=== PATIENT | female | born 2000 | race Caucasian/White ===

== ENCOUNTER 2022-05-06 13:01 | Emergency (ER) | payer OTHER, SELFPAY ==
[2022-05-06 13:12] VITALS: BP 103/54; PULSE 120; RESP 24; TEMP 36.7; O2SAT 100
--- NOTE | 2022-05-06 13:13 | ED.SKABFB ---
HPI - Skin/Abscess/Foreign Bdy General Chief complaint: Skin/Abscess/Foreign Body Stated complaint: Skin Sore/FInger Time Seen by Provider: 05/06/22 13:13 Source: patient and RN notes reviewed History of Present Illness HPI narrative: Patient is a 22-year-old female who presents to urgent care with complaints of a sore on her right little finger. Patient states that it started 3 weeks ago and within the last couple weeks it has drained and now the nail is starting to lift. Patient states she has been using Neosporin and have soaked in peroxide. Patient also reports a history of anxiety with recent panic attacks after a break-up in March. Mother states she did have a suicide attempt in 2019 and was released from the psychiatrist and taken off of her medications. Patient states that she had been ?doing really well on a high for the last year until the recent heart break. Patient states that it was a bad break-up which makes it harder. Denies any suicidal thoughts and states that she will ?never attempted suicide again?. Patient is tearful and does appear to be very anxious. Patient states that she does take hydroxyzine as needed but only has a few pills left. Mother is requesting a chronic anxiety medication. No other acute complaints. No acute distress noted. Patient and mother aware of the plan of care. Some parts of this dictation were generated by voice recognition software and may contain typographical and/or grammatical inaccuracies. Related Data Home Medications Medication Instructions Recorded Confirmed hydroxyzine pamoate 25 mg capsule See Rx Instructions .Route 05/06/22 05/06/22 .COMPLEX PRN Anxiety spironolactone 50 mg tablet 50 mg PO DAILY 05/06/22 05/06/22 Allergies Allergy/AdvReac Type Severity Reaction Status Date / Time cefdinir AdvReac Gastrointestinal Verified 05/06/22 13:25 Upset Review of Systems Review of Systems: CONSTITUTIONAL: Denies fever, chills, or sweats. EYES: Denies visual changes, redness, or discharge. ENT: Denies rhinorrhea, congestion, sore throat, or otalgia. CARDIOVASCULAR: Denies chest pain, palpitations, or edema. RESPIRATORY: Denies cough or dyspnea. GASTROINTESTINAL: Denies abdominal pain, nausea, vomiting, or diarrhea. GENITOURINARY: Denies dysuria or hematuria. SKIN: Reports a skin sore to the right pinky finger MUSCULOSKELETAL: Denies back pain, joint pain, or myalgia. NEUROLOGIC: Denies headache, numbness, or weakness. PSYCHIATRIC: reports history of anxiety and depression with current panic attacks All other systems reviewed are negative, except as documented in HPI. PMFSH Comments At the time of my signature, I reviewed and agree with the nursing past medical, surgical, social, and family history. There is no relevant family history pertinent to the patient complaint. Exam Narrative: GENERAL: This is a well-nourished, well-developed patient, and tearful. HEAD: normocephalic, atraumatic. EYES: PERRL. Sclera clear/white. Vision is grossly intact. EARS: External ears normal NOSE: External nose normal with no obvious nasal discharge, nares without redness, no rhinorrhea. THROAT: Mucous membranes moist NECK: Neck supple SKIN: Drained erythema neck is 0.5 cm paronychia noted to the radial aspect of the right pinky finger. Warm, intact with no suspicious lesions or rash, good texture and turgor. NEURO: awake, alert, and oriented to person, place and time. There were no obvious focal neurologic abnormalities. EXTREMITIES: Positive strong right radial pulse with capillary refill less than 2 seconds. Course Course Level of Care: Express Care Visit Vital Signs Vital signs: Vital Signs Temperature 98.1 F 05/06/22 13:12 Pulse Rate 120 H 05/06/22 13:12 Respiratory Rate 24 H 05/06/22 13:12 Blood Pressure 103/54 L 05/06/22 13:12 Pulse Oximetry 100 05/06/22 13:12 Oxygen Delivery Room Air 05/06/22 13:12 Temperature 98.1 F 05/06/22 13:12 Pulse
== END 2022-05-06 13:50 | disposition home or self-care (01) ==
PROVIDERS: Emergency Provider Nurse Practitioner Family
DX: L03.011 Cellulitis of right finger (principal); F41.9 Anxiety disorder, unspecified
CPT/HCPCS: 99213; G0463